=== PATIENT | female | born 1995 | race Caucasian/White ===

== ENCOUNTER → 2024-06-21 09:41 | Outpatient (REF) | payer OTHER, SELFPAY | LOC: RAD 09:41 | PROVIDERS: ATTENDING PHYSICIAN Physician Assistant; FAMILY PHYSICIAN Family Medicine | DX: R59.1 Generalized enlarged lymph nodes (principal) | CPT/HCPCS: 76536 ==

== ENCOUNTER → 2025-01-18 10:25 | Outpatient (REF) | payer OTHER, SELFPAY | LOC: MRI 3T 10:25 | PROVIDERS: ATTENDING PHYSICIAN Family Medicine | DX: M54.2 Cervicalgia (principal); G89.29 Other chronic pain; G44.52 New daily persistent headache (NDPH); R42 Dizziness and giddiness; R20.0 Anesthesia of skin; M62.81 Muscle weakness (generalized) | CPT/HCPCS: 70553; 72141; A9575 ==

== ENCOUNTER → 2025-02-10 20:15 | Outpatient (REF) | payer OTHER, SELFPAY | LOC: PAVMRI 20:15 | PROVIDERS: FAMILY PHYSICIAN Family Medicine | DX: S83.411A Sprain of medial collateral ligament of right knee, initial encounter (principal) | CPT/HCPCS: 73721 ==